=== PATIENT | female | born 1945 | race Caucasian/White ===

== ENCOUNTER 2018-10-16 10:53 | Outpatient (CLI) | payer MEDICARE, BC ==
[2018-10-16] MEDS ORDERED: Iopamidol 370 76% 100 ML VIAL ONE (13:39)
--- NOTE | 2018-10-16 15:53 | CT ---
CT ABDOMEN AND PELVIS WITH IV CONTRAST: 10/16/2018 HISTORY: Abnormal imaging findings of the abdomen. History of hysterectomy. Low back pain. COMPARISON: None available. FINDINGS: There is mild dependent atelectasis at each lung base. The lung bases are otherwise clear. The liver, spleen, pancreas, bilateral adrenal glands, kidneys, abdominal aorta, and opacified bowel demonstrate a normal CT appearance. A small amount of retained fecal material is seen within the reg ion of the sigmoid colon and rectum. No free fluid, fluid collection, or lymphadenopathy is seen in the abdomen or pelvis. The osseous structures demonstrate no lytic or sclerotic osseous lesions. IMPRESSION: No acute findings are seen in the abdomen or pelvis. POS: [facility]
== END 2018-10-16 10:54 | disposition home or self-care (01) ==
LOC: BICCT 10:53
PROVIDERS: ATTEND Family Medicine
DX: R93.5 Abnormal findings on diagnostic imaging of other abdominal regions, including retroperitoneum (principal)
CPT/HCPCS: 74177; 82565; Q9967

== ENCOUNTER 2019-03-17 12:03 | Outpatient (CLI) | payer MEDICARE, BC ==
--- NOTE | 2019-03-17 13:37 | RAD ---
THREE VIEWS OF THE LEFT FOOT: 03/17/19 COMPARISON: None. HISTORY: Pain in the left heel for one week. FINDINGS: There is prominent enthesophyte formation at the origin of the plantar aponeurosis. There is moderate degenerative change at the first metatarsophalangeal joint with joint space narrowing, subchondral s clerosis and osteophyte formation. There is no displaced fracture or evidence of dislocation. IMPRESSION: Calcaneal osteophyte formation and degenerative change of the first metatarsophalangeal joint. POS: [facility]
== END 2019-03-17 12:04 | disposition home or self-care (01) ==
LOC: BICRAD 12:03
PROVIDERS: ATTEND Family Medicine
DX: M79.672 Pain in left foot (principal); M19.071 Primary osteoarthritis, right ankle and foot